=== PATIENT | female | born 1970 | race Caucasian/White ===

== ENCOUNTER 2023-07-25 20:30 | Emergency (ER) | payer OTHER ==
[~2023-07-25] VITALS: Ht 165.1 cm; Wt 113.3 kg
[2023-07-26 01:54] VITALS: BP 133/72; TEMP 97.1; O2SAT 98
[2023-07-26] MEDS: KETOROLAC 60MG 2ML VIAL IM ONE (03:05)
[2023-07-26] MEDS ORDERED: CYCL5TAB PO (04:20)
[2023-07-26] MEDS ORDERED: NAPR-837 PO (04:20)
== END 2023-07-26 05:39 | disposition home or self-care (01) ==
LOC: M ED 20:30
DX: M54.50 Low back pain, unspecified (principal); W01.0XXA Fall on same level from slipping, tripping and stumbling without subsequent striking against object, initial encounter; M16.11 Unilateral primary osteoarthritis, right hip; M51.35 Other intervertebral disc degeneration, thoracolumbar region; M51.36 Other intervertebral disc degeneration, lumbar region; M25.78 Osteophyte, vertebrae; I10 Essential (primary) hypertension; E78.5 Hyperlipidemia, unspecified; J45.909 Unspecified asthma, uncomplicated; Z88.5 Allergy status to narcotic agent; Z91.048 Other nonmedicinal substance allergy status; Y92.9 Unspecified place or not applicable; Y93.89 Activity, other specified; Y99.0 Civilian activity done for income or pay; Z79.1 Long term (current) use of non-steroidal anti-inflammatories (NSAID); Z79.899 Other long term (current) drug therapy
CPT/HCPCS: 72110; 73502; 96372; 99282; J1885